=== PATIENT | female | born 1975 | race African-American/Black ===

== ENCOUNTER 2018-01-09 08:25 | Emergency (ER) | payer SELFPAY ==
[2018-01-09] MEDS: LORazepam 1 MG TABLET PO (09:29)
[2018-01-09] MEDS: hydrOXYzine PAMOATE 25 MG CAPSULE PO (09:29)
== END 2018-01-09 10:44 | disposition home or self-care (01) ==
LOC: ER 10:44
DX: L30.9 Dermatitis, unspecified (principal); F41.9 Anxiety disorder, unspecified; F32.9 Major depressive disorder, single episode, unspecified
CPT/HCPCS: 99283; Q0177